=== PATIENT | female | born 1950 | race Caucasian/White ===

== ENCOUNTER 2016-04-15 06:18 | Emergency (ER) | payer OTHER ==
[2016-04-15] MEDS ORDERED: ONDANSETRON 4 MG/2 ML VIAL IVP ONE (06:56)
[2016-04-15] MEDS ORDERED: NS 1,000 ML IV ONE (06:56)
[2016-04-15] MEDS ORDERED: METOCLOPRAMIDE 10 MG/2 ML VIAL ONE (07:09)
[2016-04-15] MEDS ORDERED: METOCLOPRAMIDE 10 MG/2 ML VIAL IVP ONE ×2 (07:09→07:10)
[2016-04-15] MEDS ORDERED: KETOROLAC 30 MG/1 ML SDV IVP ONE (07:13)
--- NOTE | 2016-04-15 07:13 | EDPHY ---
H & P Stated Complaint: COON, n/v Time Seen by Provider: 04/15/16 07:03 - Personal History Current Tetanus/Diphtheria Vaccine: Yes Current Tetanus Diphtheria and Acellular Pertussis (TDAP): Yes - Medical/Surgical History Hx Asthma: No Hx Chronic Respiratory Disease: No Hx Diabetes: No Hx Cardiac Disease: No Hx Renal Disease: No Hx Cirrhosis: No Hx Alcoholism: No Hx HIV/AIDS: No Hx Splenectomy or Spleen Trauma: No Other PMH: appendectomy - Social History Smoking Status: Never smoked Constitutional: Initial Vital Signs Temperature (C) 36.5 C 04/15/16 06:24 Heart Rate 86 04/15/16 06:24 Respiratory Rate 16 04/15/16 06:24 Blood Pressure 146/90 H 04/15/16 06:24 O2 Sat (%) 97 04/15/16 06:24 O2 Delivery Mode Room Air Allergies/Adverse Reactions: No Known Allergies Allergy (Unverified 04/15/16 06:24) Home Medications: Medication Instructions Recorded NK [No Known Home Meds] 04/15/16 Medical Decision Making ED Course/Re-evaluation: CHIEF COMPLAINT: Nausea vomiting dehydration headache HISTORY OF PRESENT ILLNESS: 66-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 All of her colleagues were ill when she thought she had a Mcfall the illness this year but unfortunately she developed nausea vomiting on Thursday and she still having some nausea vomiting and dry heaving. She denies any abdominal pain. She has a slight cough and congestion also. She states that the headache was brought on by all of the dry heaving and dehydration but she did not have a headache initially and she is not someone who usually gets headaches. She denies any neurologic problems. She denies any flank pain. She denies any urinary symptoms. She denies any diarrhea. REVIEW OF SYSTEMS: A 10 point review of systems was performed and is negative with the exception of the elements mentioned in the history of present illness. PHYSICAL EXAM: HR, BP, O2 Sat, RR. Temp noted General Appearance: Alert, well hydrated, appropriate, and non-toxic appearing. Head: Atraumatic without scalp tenderness or obvious injury Eyes: Pupils equal, round, reactive to light and accommodation, EOMI, no trauma , no injection. Ears: Clear bilaterally, no perforation, normal landmarks Nose: Atraumatic, no rhinorrhea, clear. Throat: There is no erythema or exudates, no lesions, normal tonsils, mucus membranes moist. Neck: Supple, 2+ carotid upstroke, nontender, no lymphadenopathy. Respiratory: No retractions, no distress, no wheezes, and no accessory muscle use. Lungs are clear to auscultation bilaterally. Cardiovascular: Regular rate and rhythm, no murmurs, rubs, or gallops. Bilateral carotid, radial, dorsalis pedis, and posterior tibial pulses intact. Good capillary refill all extremities. Gastrointestinal: Abdomen is soft, nontender, non-distended, no masses, no rebound, no guarding, no peritoneal signs. Musculoskeletal: Normal active ROM of all extremities, atraumatic. Neurological: Alert, appropriate, and interactive. The patient has normal DTRs and non-focal cranial nerves, motor, sensory, and cerebellar exam. Skin: No rashes, good turgor, no nodules on palpation. Past medical history: Patient denies states she is very healthy Past surgical history: Noncontributory Family history: Noncontributory Social history: , employed, does not abuse tobacco drugs or alcohol, works in a daycare center DIFFERENTIAL DIAGNOSIS: The differential diagnosis for the patient's nausea and vomiting included but was not limited to [gastroenteritis, gastritis, appendicitis, and medication side effect.] MEDICAL DECISION MAKING: This patient has a completely benign abdominal exam. I will start given her intravenous fluids, Zofran, Reglan for her headache. Laboratory studies are pending since she has been vomiting for several days I want make sure her electrolytes kidney function pancreatic and liver function are okay. She feels much much better. Her headaches completely resolved she has no more nausea she is been successfully taking clear liquids without any difficulties. I will discharge her with some Zofran and ask her to remain on clear liquids the rest of the day. - Data Points Laboratory Results: Laboratory Results 04/15/16 06:45 04/15/16 06:45 04/15/16 04/15/16 07:12 06:45 WBC 4.40 10^3/uL (3.80-9.50) RBC 4.80 10^6/uL (4.18-5.33) Hgb 14.7 g/dL (12.6-16.3) Hct 42.6 % (38.0-47.0) MCV 88.8 fL (81.5-99.8) MCH 30.6 pg (27.9-34.1) MCHC 34.5 g/dL (32.4-36.7) RDW 13.4 % (11.5-15.2) Plt Count 189 10^3/uL (150-400) MPV 10.7 fL (8.7-11.7) Neut % (Auto) 82.1 H % (39.3-74.2) Lymph % (Auto) 7.7 L % (15.0-45.0) Alcorn % (Auto) 9.8 % (4.5-13.0) Eos % (Auto) 0.0 L % (0.6-7.6) Baso % (Auto) 0.2 L % (0.3-1.7) Nucleat RBC Rel Count 0.0 % (0.0-0.2) Absolute Neuts (auto) 3.61 10^3/uL (1.70-6.50) Absolute Lymphs (auto) 0.34 L 10^3/uL (1.00-3.00) Absolute Monos (auto) 0.43 10^3/uL (0.30-0.80) Absolute Eos (auto) 0.00 L 10^3/uL (0.03-0.40) Absolute Basos (auto) 0.01 L 10^3/uL (0.02-0.10) Absolute Nucleated RBC 0.00 10^3/uL (0-0.01) Immature Gran % 0.2 % (0.0-1.1) Immature Gran # 0.01 10^3/uL (0.00-0.10) Sodium 140 mEq/L (134-144) Potassium 3.1 L mEq/L (3.5-5.2) Chloride 105 mEq/L (97-110) Carbon Dioxide 26 mEq/l (22-31) Anion Gap 9 mEq/L (8-16) BUN 6 L mg/dL (7-23) Creatinine 0.7 mg/dL (0.6-1.0) Estimated GFR > 60 Glucose 118 H mg/dL (70-100) Calcium 8.3 L mg/dL (8.5-10.4) Influenza Typ A,B (DFA) NEGATIVE FOR FLU (NEGATIVE) Medications Given: Discontinued Medications Sodium Chloride (Ns) 1,000 mls @ 0 mls/hr IV EDNOW ONE PRN Reason: Wide Open Stop: 04/15/16 06:57 Last Admin: 04/15/16 07:05 Dose: 1,000 mls Ketorolac Tromethamine (Toradol) 30 mg IVP EDNOW ONE Stop: 04/15/16 07:14 Last Admin: 04/15/16 07:30 Dose: 30 mg Metoclopramide HCl (Reglan Injection) 10 mg IVP EDNOW ONE Stop: 04/15/16 07:10 Last Admin: 04/15/16 07:12 Dose: 10 mg Metoclopramide HCl (Reglan Injection) 10 mg IVP EDNOW ONE Stop: 04/15/16 07:11 Last Admin: 04/15/16 07:16 Dose: Not Given Ondansetron HCl (Zofran) 4 mg IVP EDNOW ONE Stop: 04/15/16 06:57 Last Admin: 04/15/16 07:05 Dose: 4 mg Departure - Departure Disposition: Home, Routine, Self-Care Clinical Impression: Acute gastroenteritis, Dehydration Headache Qualifiers: Headache type: unspecified Headache chronicity pattern: acute headache Intractability: not intractable Qualifier Code: (R51) Headache Condition: Good Instructions: Acute Nausea and Vomiting (ED)
[2016-04-15 07:16] LABS: % IMMATURE GRANULYOCYTES 0.2 % (0.0-1.1); ABSOLUTE IMMATURE GRANULOCYTES 0.01 10^3/uL (0.00-0.10); ADD DIFF? NO; ADD MORPH? NO; ADD SCAN? NO; ATYPICAL LYMPHOCYTE FLAG 10 (0-99); FRAGMENT RBC FLAG 0 (0-99); HEMATOCRIT 42.6 % (38.0-47.0); HEMOGLOBIN 14.7 g/dL (12.6-16.3); LEFT SHIFT FLG 0 (0-99); LIPEMIA HEMOLYSIS FLAG 90 (0-99); MEAN CELL HEMOGLOBIN 30.6 pg (27.9-34.1); MEAN CELL HEMOGLOBIN CONCENTR. 34.5 g/dL (32.4-36.7); MEAN CELL VOLUME 88.8 fL (81.5-99.8); MEAN PLATELET VOLUME 10.7 fL (8.7-11.7); PLATELET CLUMPS FLAG 10 (0-99); PLATELET COUNT 189 10^3/uL (150-400); RED CELL DISTRIBUTION WIDTH 13.4 % (11.5-15.2)
[2016-04-15 07:22] LABS: ANION GAP 9 mEq/L (8-16); CALCIUM 8.3 mg/dL (8.5-10.4); CARBON DIOXIDE 26 mEq/l (22-31); CHLORIDE 105 mEq/L (97-110); CREATININE 0.7 mg/dL (0.6-1.0); GLOMERULAR FILTRATION RATE > 60; GLUCOSE 118 mg/dL (70-100); POTASSIUM 3.1 mEq/L (3.5-5.2); SODIUM 140 mEq/L (134-144)
[2016-04-15 08:47] VITALS: BP 134/76; PULSE 68; RESP 14; TEMP 97.9; O2SAT 94
== END 2016-04-15 08:49 | disposition home or self-care (01) ==
DX: K52.9 Noninfective gastroenteritis and colitis, unspecified (principal); E86.0 Dehydration
CPT/HCPCS: 96361; 96374; 96375; 99284; J1885; J2405; J2765

== ENCOUNTER → 2018-08-19 | Outpatient (CLI) | payer OTHER | LOC: GIMAGING 15:50 ==